=== PATIENT | female | born 1995 | race Caucasian/White ===

== ENCOUNTER 2018-04-09 22:41 | Emergency (ER) | payer MEDICAID ==
[~2018-04-09] VITALS: Ht 160 cm; Wt 88.5 kg
[2018-04-09 22:47] VITALS: Ht 160 cm; Wt 88.5 kg
[2018-04-10 00:13] VITALS: BP 125/77
== END 2018-04-10 00:13 | disposition short-term general hospital (02) ==
LOC: ED 22:41
DX: O26.891 Other specified pregnancy related conditions, first trimester (principal); R10.30 Lower abdominal pain, unspecified; Z3A.30 30 weeks gestation of pregnancy
CPT/HCPCS: J7030